=== PATIENT | female | born 1935 | race Caucasian/White ===

== ENCOUNTER 2017-06-26 14:55 | Emergency (ER) | END 2017-06-26 17:17 | disposition home or self-care (01) ==

== ENCOUNTER 2019-01-19 06:49 | Day surgery (SDC) | payer MEDICARE, OTHER ==
--- NOTE | 2019-01-18 22:17 | PREAC ---
Date/Time of Note Date/Time of Note DATE: 01/18/19 TIME: 22:13 Anesthesia Eval and Record Evaluation Time Pre-Procedure Interview DATE: 01/18/19 TIME: 22:13 Age 83 Sex female NPO: 8 hrs Preoperative diagnosis hallux abductovalgus Planned procedure left foot bunionectomy, osteotomy, with fixation 1st metatarsal, left foot a pplication of pro-3 Past Medical History Past Medical History: Includes Cardio: HTN, Dyslipidemia Neuro: Other (memory loss) Musculoskeletal: Osteoarthritis Surgery & Anesthesia Issues No known issue Meds Anticoagulation: No Beta Yonatan within 24 hr: Yes Reported Medications Folic Acid* (Folic Acid*) 1 Mg Tablet, 1 MG PO DAILY, TAB 01/19/19 Clonidine Hcl* (Clonidine Hcl*) 0.2 Mg Tablet, 0.2 MG PO BID, TAB 01/19/19 Discontinued Reported Medications Carvedilol* (Carvedilol*) 25 Mg Tablet, 25 MG PO BID, TAB 10/13/14 Albuterol Sulfate* (Ventolin HFA*) 18 Gm Hfa.aer.ad, 2 PUFF IH Q4H PRN for WHEEZING AND RESP DISTRESS, EA 10/13/14 Brimonidine/Timolol* (Combigan*) 5 Ml Drops, 1 DROP BOTH EYES BID, BOTTLE 10/13/14 Travoprost* (Travatan*) 0.004%-2.5 Ml Opht, 1 DROP BOTH EYES HS, EA 10/13/14 Naproxen* (Naproxen EC*) 500 Mg Tablet.dr, 500 MG PO BID PRN for PAIN, TAB 10/13/14 Hydrocodone Bit-Acetaminophen* ([place]*) 10-325 Mg Tablet, 1 TAB PO Q4H PRN for PAIN, TAB 10/13/14 Discontinued Scripts Acetaminophen* (Tylophen*) 500 Mg Capsule, 1 CAP PO Q6H PRN for PAIN AND OR ELEVATED TEMP, #15 CAP Prov:ZARI FREEMAN MD 06/26/17 Azithromycin* (Zithromax*) 250 Mg Tablet, 250 MG PO .ZPACK DIRECTED, #6 TAB TAKE 500 MG (2 TABS) THE FIRST DAY THEN 250 MG (1 TAB) DAYS 2-5 Prov:ZARI FREEMAN MD 06/26/17 Meds reviewed: Yes Allergies Coded Allergies: Penicillins (Verified Allergy, Mild, 01/19/19) Allergies Reviewed: Yes Labs/Studies Labs Reviewed: Reviewed by anesthesiologist test: N/A Studies: ECG Pre-procedure Exam Airway: Adequate mouth opening, Adequate thyromental dist Mallampati: Mallampati II Teeth: Normal Lung: Normal Heart: Normal ASA Physical Status ASA physical status: 2 Emergency: None Planned Anesthetic General/MAC: MAC, TIVA Planned Pain Management Parenteral pain med, Local by surgeon Pre-operative Attestations Prior to commencing anesthesia and surgery, the patient was re-evaluated, there was verification of: *The patient's identity *The results of appropriate recent lab work and preoperative vital signs *The above evaluation not changing prior to induction *Anesthetic plan, risk benefits, alternative and complications discussed with patient/family; questions answered; patient/family understands, accepts and wishes to proceed. JANETH GARCIA Jan 18, 2019 22:17
[~2019-01-19] VITALS: Ht 149.9 cm; Wt 72.7 kg
[~2019-01-19 06:49] MED LIST: ACET500C5 PO; ALBU18HF IH; AZIT250T PO; CARV25TA79 PO; CLON0.2T5 PO; COMBIG5 BOTH EYES; FOLI-49 PO; HYDR-762 PO; NAPR500T8 PO; TRAV4OP25 BOTH EYES
[2019-01-19 07:50] VITALS: BP 100/63; PULSE 85; RESP 18; Ht 149.9 cm; Wt 72.7 kg
[2019-01-19] MEDS ORDERED: LACTATED RINGER'S 1,000 ML IV SCH (08:00)
--- NOTE | 2019-01-19 09:20 | HPN ---
Date/Time of Note Date/Time of Note DATE: 01/19/19 TIME: 09:19 Interval H&P Admission Note Pt. seen H&P reviewed: No system changes CHATO CARRANZA DPM Jan 19, 2019 09:20
[2019-01-19] MEDS ORDERED: FENTAnyl 50 MCG/ML VIAL ONE (09:30)
[2019-01-19] MEDS ORDERED: PROPOFOL 20 ML ONE (09:30)
[2019-01-19] MEDS ORDERED: CLINDAMYCIN 900 MG/D5W (PMX) 50 ML IVPB ONE (09:30)
[2019-01-19] MEDS ORDERED: BUPIVACAINE 0.5% (SDV) 30 ML INJ ONE (09:47)
[2019-01-19] MEDS ORDERED: POLYMYXIN/BACITRACIN 1L IRRIG ONE (09:47)
[2019-01-19] MEDS ORDERED: DEXAMETHASONE 4 MG/ML 1 ML INJ ONE (09:47)
[2019-01-19] MEDS ORDERED: LIDOCAINE 1% (MPF) 30 ML INJ ONE (09:47)
[2019-01-19] MEDS ORDERED: ONDANSETRON 4 MG INJ ONE (09:54)
[2019-01-19] MEDS ORDERED: DEXAMETHASONE 4 MG/ML 5 ML INJ ONE (09:54)
[2019-01-19] MEDS ORDERED: POVIDONE IODINE 10% 28.4 GM OINT ONE (10:04)
[2019-01-19] MEDS ORDERED: KETOROLAC 30 MG INJ ONE (10:23)
[2019-01-19] MEDS ORDERED: MEPERIDINE 25 MG INJ IV PRN (10:30)
[2019-01-19] MEDS ORDERED: FENTAnyl 50 MCG/ML VIAL IV PRN ×3 (10:30)
[2019-01-19] MEDS ORDERED: hydrALAzine 20 MG INJ IV PRN (10:30)
[2019-01-19] MEDS ORDERED: OXYCODONE/ACETAMINOPHEN (5/325) TAB PO PRN ×2 (10:30)
[2019-01-19] MEDS ORDERED: ONDANSETRON 4 MG INJ IV PRN (10:30)
[2019-01-19] MEDS ORDERED: LABETALOL HCL 20MG INJ IV PRN (10:30)
--- NOTE | 2019-01-19 10:54 | SIPON ---
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
[2019-01-19 10:56] VITALS: BP 138/66; PULSE 84; RESP 21
[2019-01-19 11:01] VITALS: BP 142/70; PULSE 84; RESP 18
--- NOTE | 2019-01-19 12:31 | PAC ---
Date/Time of Note Date/Time of Note DATE: 01/19/19 TIME: 12:31 Post-Anesthesia Notes Post-Anesthesia Note Last documented vital signs Vital Signs Date Temp Pulse Resp B/P (MAP) Pulse Ox O2 O2 Flow FiO2 Time Delivery Rate 01/19/19 Simple 8.0 11:09 Mask 01/19/19 84 18 142/70 99 11:01 (94) 01/19/19 97.6 10:56 Activity: WNL Respiratory function: WNL Cardiovascular function: WNL Mental status: Baseline Pain reasonably controlled: Yes Hydration appropriate: Yes Nausea/Vomiting absent: Yes JANETH GARCIA Jan 19, 2019 12:31
[2019-01-19 12:57] VITALS: BP 141/79; PULSE 74; RESP 18
--- NOTE | 2019-01-19 13:51 | PREOPHP ---
DATE OF ADMISSION: 01/19/2019 The patient is being admitted to the hospital for elective foot surgery, palliative treatment unsuccessful. The patient has been explained surgery, complications, alternatives and elected to have elective foot surgery. The patient is having pain on the left foot and the patient is in good general health. She has a DP and PT that are +2. She is negative for diabetic. She has a bunion on the left foot. She was taking medicines, hydrocodone, meclizine, carvedilol, Nitrostat occasionally, triamterene, Lorazepam, naproxen, Travatan, Combigan. See any other pertinent history and upper extremity physical exam by Dr. Esteves, lower extremity physical exam shows DP and PT +2. NEUROLOGICAL: Negative for pathology. MUSCULOSKELETAL: Shows a hallux abductovalgus with bunion formation, left foot. FINAL DIAGNOSIS: Hallux abductovalgus with bunion, left foot. Dictated By: CHATO LOPEZ/AMANDA Conf#: [id number] DID#: [id number] MTDD
--- NOTE | 2019-01-19 18:06 | OPR ---
DATE OF OPERATION: 01/19/2019 PREOPERATIVE DIAGNOSIS: Hallux abductovalgus with bunion formation, left foot. POSTOPERATIVE DIAGNOSIS: Hallux abductovalgus with bunion formation, left foot. PROCEDURES: Osteotomy and bunionectomy with fixation, 1st metatarsal, left foot. SURGEON: Chato Burton DPM DESCRIPTION OF PROCEDURE: The patient was brought to the surgical suite, placed in the supine position. The patient is under general anesthesia and had a pneumatic cuff at mid-thigh. The patient had sterile draped prepped and findings were consistent with the pre and postoperative diagnoses. The first incision was a dorsomedial longitudinal incision over the 1st metatarsophalangeal joint. Using sharp and blunt dissection, the head of the 1st metatarsal was freed of its attachment and the head was remodeled going dorsally and medially. Then V-osteotomy was made going medial to lateral with the apex distal. The 2 arms of the V were 60 degrees from each other and with through and through cuts. The capital fragment was moved laterally and impacted upon the shaft. The overhang on the shaft was excised and then a K-wire was placed across the osteotomy site and measured. A 14 mm x 2.5 mm headless screw by [employer] was placed over the K-wire and screwed into place. The K-wire was removed. The osteotomy site was held solid. The medial aspect was rasped smooth. The area was cleansed and the preoperative condition having been relieved. The area then was subcutaneously coaptated using 3-0 Vicryl and the skin was coaptated using 5-0 Nylon. The area was injected with 0.5% Marcaine and the area was dressing using 1/2-inch Steri-Strips with Betadine ointment, 4 x 4's impregnated with Betadine solution with an outer layer of Terri and Coban made into a semi-compressive dressing. The patient tolerated surgery well and was returned to recovery room in satisfactory condition. There was minimum blood loss and no complications. Dictated By: CHATO LOPEZ/AMANDA Conf#: [id number] DID#: [id number] MTDD
== END 2019-01-19 13:30 | disposition home or self-care (01) ==
LOC: SDS 06:49
PROVIDERS: ATTEND Podiatrist
DX: M20.12 Hallux valgus (acquired), left foot (principal); M21.612 Bunion of left foot; I10 Essential (primary) hypertension
CPT/HCPCS: 28299; 71045; 88304; C1713; J1100; J1885; J2405; J3010